=== PATIENT | male | born 1950 | race Caucasian/White ===

== ENCOUNTER 2017-02-26 07:12 | Day surgery (SDC) | payer MEDICARE, BC ==
[~2017-02-26 07:12] MED LIST: Dextrose 5%-0.45% NaCl 1,000 ML IV SCH; Midazolam 1 MG/ML 2 ML SDV ONE; Sodium Chloride 0.9% 10 ML Syringe FLUSH PRN; fentaNYL 100 MCG/2 ML SDV ONE
[2017-02-26] MEDS ORDERED: fentaNYL 100 MCG/2 ML SDV IV ONE ×3 (09:02→16:49)
[2017-02-26] MEDS ORDERED: Midazolam 1 MG/ML 2 ML SDV IV ONE ×6 (09:03→16:49)
[2017-02-26 11:10] VITALS: BP 126/57
--- NOTE | 2017-02-26 14:05 | LETTER ---
02/26/2017 Shilo Castro MD [address] [place] [address] RE: [place] ERIKA : [address] Castro: Mr. Napoleon [place] had colonoscopic examination done this morning and he tolerated the procedure well. I herewith send a copy of the endoscopy note and photographs for your review. Thank you. Sincerely, [facility] /[id number]
--- NOTE | 2017-02-26 14:08 | OR ---
DATE: 02/26/2017 PROCEDURE: Total colonoscopy and multiple cold snare polypectomies. INSTRUMENT USED: CF-H180AL Olympus video colonoscope. PREMEDICATIONS: Fentanyl 100 mcg intravenous, Versed 3.5 mg intravenous. Nasal O2 cannula. The procedure was done under pulse oximetry, BP recording, and media monitor. INDICATION: The patient with previous colonic tubular adenomata and inadequate study due to the presence of fecal material. Colonoscopic examination is done for detection of any polypoid lesions and removal, endoscopic hemostasis therapy if needed. DESCRIPTION OF PROCEDURE: Initial rectal exam was unremarkable. Rigid anoscopy was normal. The colonoscope was passed with ease. Multiple diminutive distal sigmoid polyps, two in number, were noted, photographs were taken, cold snare polypectomies were done, the tissues were retrieved and sent for histopathology. Numerous scattered diverticula were noted more so in the left colon. The scope was passed with ease up to the ileocecal area, photographs were taken of the normal appearing cecum, identified by double-bulged ileocecal folds. No bleeding was noted from any of the visualized areas at the commencement of the examination. There was some solid fecal material that had to be aspirated. No stricture, no vascular ectasia. No large isolated ulceration seen. No evidence of diffuse inflammatory bowel disease in the form of friability, contact bleeding, or ulcerations. Probing the proximal sides of folds and flexures, using adequate distention and clearing up the stool material, withdrawal of the scope was made, cecum to rectum time over 6 minutes. No bleeding was noted from any of the visualized areas at the completion of examination. IMPRESSION: 1. Diminutive sigmoid polyps. 2. Diverticulosis. The patient tolerated the procedure well. [facility] /[id number]
== END 2017-02-26 11:15 | disposition home or self-care (01) ==
LOC: DL.ENDO 07:12 → EDSEX 08:30 → DL.ENDO 11:15
PROVIDERS: ATTEND Internal Medicine Gastroenterology
DX: K63.5 Polyp of colon (principal); K57.30 Diverticulosis of large intestine without perforation or abscess without bleeding; E66.9 Obesity, unspecified; I10 Essential (primary) hypertension; E78.5 Hyperlipidemia, unspecified; E11.9 Type 2 diabetes mellitus without complications; Z82.49 Family history of ischemic heart disease and other diseases of the circulatory system; D64.9 Anemia, unspecified; H91.90 Unspecified hearing loss, unspecified ear; Z79.84 Long term (current) use of oral hypoglycemic drugs; Z86.010 Personal history of colon polyps; Z79.899 Other long term (current) drug therapy
CPT/HCPCS: 45385; J2250; J3010; J7042; 88305